=== PATIENT | female | born 1945 | race Caucasian/White ===

== ENCOUNTER 2022-05-09 10:56 | Day surgery (SDC) | payer OTHER ==
[~2022-05-09] VITALS: Ht 152.4 cm; Wt 55.8 kg
[2022-05-09] MEDS ORDERED: CEFAZOLIN 2 GM IVPB PREMIX 50 ML IV ONE (12:58)
[2022-05-09] MEDS ORDERED: CEFAZOLIN SOD 2 GM in D5W 50 ML IV ONE (13:00)
[2022-05-09] MEDS ORDERED: BUPIVACAINE /PF 0.25% 30 ML VIAL INJ ONE (13:43)
[2022-05-09] MEDS ORDERED: GLYCOPYRROLATE 0.2 MG/ML VIAL ONE (13:43)
[2022-05-09] MEDS ORDERED: LR 1,000 ML IV.SOLN IV ONE (13:43)
[2022-05-09] MEDS ORDERED: NEOSTIGMINE METHYLSULFATE 1 MG/ML, 10 ML VIAL ONE (13:43)
[2022-05-09] MEDS ORDERED: SUCCINYLCHOLINE CHLORIDE 20 MG/ML(QUELICIN) ONE (13:43)
[2022-05-09] MEDS ORDERED: ROCURONIUM BROMIDE 10 MG/ML (ZEMURON) ONE (13:43)
[2022-05-09] MEDS ORDERED: SEVOFLURANE 15 MIN GAS INH ONE (13:43)
[2022-05-09] MEDS ORDERED: PROPOFOL 200MG/ 20ML VIAL (DIPRIVAN) IV ONE (13:43)
[2022-05-09] MEDS ORDERED: METOCLOPRAMIDE HCL 10 MG/2 ML VIAL IVP PRN (15:45)
[2022-05-09] MEDS ORDERED: ONDANSETRON HCL 4 MG/2 ML VIAL IVP PRN (15:45)
[2022-05-09] MEDS ORDERED: fentaNYL CITRATE/PF 100 MCG/2 ML AMP IVP PRN (15:45)
[2022-05-09] MEDS ORDERED: ACETAMINOPHEN I.V. 1000 MG 100 ML IV ONE ×2 (16:43→18:15)
[2022-05-09] MEDS: fentaNYL CITRATE/PF 100 MCG/2 ML AMP IVP PRN ×4 (16:55→17:39)
[2022-05-09] MEDS ORDERED: fentaNYL CITRATE/PF 100 MCG/2 ML AMP ONE ×2 (16:57→17:15)
[2022-05-09] MEDS ORDERED: hydrALAZINE HCL 20 MG/ML VIAL IVP ONE (17:45)
[2022-05-09] MEDS ORDERED: hydrALAZINE HCL 20 MG/ML VIAL ONE (17:48)
[2022-05-09 20:00] VITALS: BP_SYST 157
== END 2022-05-09 20:15 | disposition home or self-care (01) ==
LOC: SDS 10:56 → SMU 10:56 → SDS 20:15
PROVIDERS: ATTEND Surgery
DX: K40.90 Unilateral inguinal hernia, without obstruction or gangrene, not specified as recurrent (principal); K42.9 Umbilical hernia without obstruction or gangrene; K45.8 Other specified abdominal hernia without obstruction or gangrene; E78.5 Hyperlipidemia, unspecified; M19.90 Unspecified osteoarthritis, unspecified site; I12.9 Hypertensive chronic kidney disease with stage 1 through stage 4 chronic kidney disease, or unspecified chronic kidney disease; E11.22 Type 2 diabetes mellitus with diabetic chronic kidney disease; N18.30 Chronic kidney disease, stage 3 unspecified; E11.42 Type 2 diabetes mellitus with diabetic polyneuropathy; K21.9 Gastro-esophageal reflux disease without esophagitis; E78.00 Pure hypercholesterolemia, unspecified; G43.909 Migraine, unspecified, not intractable, without status migrainosus; G47.33 Obstructive sleep apnea (adult) (pediatric); M85.80 Other specified disorders of bone density and structure, unspecified site; Z79.899 Other long term (current) drug therapy
CPT/HCPCS: 49659; 49650; 82962; 36415; 82948; 88302; 87426; 49585; C1781; J3490 ×2; J0690; J0360; J2704; J0330; J3010; J7120; J0131; J2710; J7060